=== PATIENT | female | born 1975 | race Caucasian/White ===

== ENCOUNTER 2023-04-30 09:30 | Outpatient (RCR) | payer OTHER, SELFPAY ==
[2023-04-10 23:47] LABS: Prothrombin Time 12.2 sec (12.0-15.5); dRVVT Screen 27 sec (33-44)
[2023-04-11 01:18] LABS: B2Glycoprotein 1, IgG Antibody <10 SGU (<=20); B2Glycoprotein 1, IgM Antibody <10 SMU (<=20)
[2023-04-11 15:22] LABS: Protein C Functional 104 % (83-168); Protein S Functional 114 % (57-131)
[2023-04-11 15:24] LABS: Cardiolipin Antibody IgA <10 APL (<=11); Cardiolipin Antibody IgG <10 GPL (<=14); Cardiolipin Antibody IgM <10 MPL (<=12)
[2023-04-11 22:05] LABS: Antithrombin, Enzymatic 50 % (76-128)
[2023-04-13 08:00] LABS: FACV Specimen Whole Blood; Factor V Leiden (F5) Mutation Negative
[2023-04-13 09:45] LABS: PT PCR Specimen Whole Blood; Prothrombin(F2)G20210A Variant Negative
== END 2023-10-06 23:59 | disposition home or self-care (01) ==
LOC: CCIC 09:30
PROVIDERS: Visit Provider Internal Medicine Hematology & Oncology
DX: D68.59 Other primary thrombophilia (principal)
CPT/HCPCS: 36415; 81240; 81241; 85300; 85303; 85306; 85610; 85613; 85730; 86146; 86147; 99202; 99205; 99213; 99214; G0463